=== PATIENT | female | born 1950 | race Caucasian/White ===

== ENCOUNTER → 2016-08-03 | Outpatient (CLI) | payer OTHER ==
--- NOTE | 2016-08-03 12:39 | MAMMOGRAPHY REPORT ---
BILATERAL DIGITAL SCREENING MAMMOGRAM WITH CAD: 08/03/2016 CLINICAL HISTORY: Routine screening. Patient has no complaints. TECHNIQUE: Current study was also evaluated with a Computer Aided Detection (CAD) system. Bilatera l CC and MLO views were obtained. COMPARISON: Comparison is made to exams dated: 07/29/2015 mammogram, 07/17/2013 mammogram, 07/23/2014 mammogram, 07/11/2012 mammogram, 07/06/2011 mammogram, and 07/05/2010 mammogram - [facility]. BREAST COMPOSITION: There are scattered areas of fibroglandular density in both breasts. FINDINGS: No suspicious masses, calcifications, or areas of architectural distortion are noted in e ither breast. There has been no significant interval change compared to prior exams. IMPRESSION: ACR BI-RADS CATEGORY 1: NEGATIVE There is no mammographic evidence of malignancy. A 1 year screening mammogram is recommended. The p atient will receive written notification of the results. Approximately 10% of breast cancers are not detected with mammography. A negative mammographic repor t should not delay biopsy if a clinically suggestive mass is present. Sera Otero M.D. ah/:08/03/2016 12:03:19 Consultant Teacher: Blake BARR(R)(M), [facility] letter sent: Normal 1/2 BI-RADS Code: ACR BI-RADS Category 1: Negative
== END | disposition home or self-care (01) ==
LOC: C.MAMM 08:52
PROVIDERS: ATTEND Obstetrics & Gynecology
DX: Z12.31 Encounter for screening mammogram for malignant neoplasm of breast (principal)

== ENCOUNTER → 2017-08-09 | Outpatient (CLI) | payer OTHER ==
--- NOTE | 2017-08-09 15:20 | MAMMOGRAPHY REPORT ---
BILATERAL DIGITAL SCREENING MAMMOGRAM TOMOSYNTHESIS WITH CAD: 08/09/2017 CLINICAL HISTORY: Routine screening. TECHNIQUE: Breast tomosynthesis in addition to standard 2D mammography was performed. Current study was also evaluated with a Computer Aided Detection (CAD) system. COMPARISON: Comparison is made to exams dated: 08/03/2016 mammogram, 07/29/2015 mammogram, 07/23/2014 m ammogram, 07/11/2012 mammogram, 07/17/2013 mammogram, and 07/06/2011 mammogram - [facility]ter. BREAST COMPOSITION: There are scattered areas of fibroglandular density in both breasts. FINDINGS: There is a triangle palpable marker overlying the upper outer posterior right breast, yissel ting the area of palpable concern pointed out by the patient. In the area of concern, there is a jesús y subtle focal area of architectural distortion measuring approximately 2.9 cm, which is concerning f or an infiltrative process. There is another questionable area of distortion in the slightly lateral middle one third of the right breast on the CC view (tomosynthesis slice 36/61, for which an additio nal spot compression tomosynthesis view and possible ultrasound is recommended. Additional targeted ultrasound is recommended. No other suspicious mass, architectural distortion or cluster of microcalcifications is seen bilatera lly. IMPRESSION: ACR BI-RADS CATEGORY 0: INCOMPLETE EVALUATION: NEED ADDITIONAL IMAGING EVALUATION The palpable area of architectural distortion in the upper outer posterior right breast, and second q uestionable area of architectural distortion in the slightly lateral right breast need additional boris ging evaluation. The patient will be called to schedule an appointment. Approximately 10% of breast cancers are not detected with mammography. A negative mammographic report should not delay biopsy if a clinically suggestive mass is present. Arleth Joseph M.D. ay/:08/09/2017 09:27:51 Automatic Riveting Machine Operator: Kanwal Godinez, [facility] letter sent: Addl Imaging 0 BI-RADS Code: ACR BI-RADS Category 0: Incomplete Evaluation: Need Additional Imaging Evaluation
== END | disposition home or self-care (01) ==
LOC: C.MAMM 08:07
PROVIDERS: ATTEND Obstetrics & Gynecology
DX: Z12.31 Encounter for screening mammogram for malignant neoplasm of breast (principal); R92.8 Other abnormal and inconclusive findings on diagnostic imaging of breast

== ENCOUNTER → 2017-08-16 | Outpatient (CLI) | payer OTHER ==
--- NOTE | 2017-08-17 07:59 | MAMMOGRAPHY REPORT ---
UNILATERAL RIGHT DIGITAL DIAGNOSTIC MAMMOGRAM TOMOSYNTHESIS AND TARGETED RIGHT ULTRASOUND: 08/16/2017 CLINICAL HISTORY: Palpable lump in the right upper outer quadrant, also possible subtle corresponding architectural distortion seen on recent screening mammogram. Patient presents for further workup. Also assess another area of possible distortion more medially in the right breast. TECHNIQUE: Breast tomosynthesis in addition to standard 2D mammography was performed. COMPARISON: Comparison is made to exams dated: 08/09/2017 mammogram, 08/03/2016 mammogram, 07/29/2015 ma mmogram, 07/23/2014 mammogram, 07/17/2013 mammogram, and 07/11/2012 mammogram - [facility]. BREAST COMPOSITION: There are scattered areas of fibroglandular density in the right breast. FINDINGS: The supplemental spot compression tomosynthesis views of the right breast demonstrate a ve ry subtle focal area of architectural distortion in the upper outer posterior right breast measuring approximately 21 x 23 x 14 mm. Further evaluation with ultrasound was performed. No other definite areas of architectural distortion are seen in the right breast, particularly more medially in the brian ast in the area of questionable distortion seen on the cc view. Targeted ultrasound was performed in the right upper outer quadrant and right axilla. In the area of palpable lump in the 11:00 right breast, 7 cm from the nipple, there is an ill-defined hypoechoic sh adowing area of architectural distortion measuring approximately 9.2 x 8.2 x 6.7 mm. The sonographic measurements likely underrepresented the size of the process, given that it feels at least 2 cm on p alpation. No other suspicious mass is seen throughout the right upper outer quadrant on targeted ult rasound. Several morphologically normal right axillary lymph nodes are seen without evidence of susp icious lymphadenopathy. IMPRESSION: ACR BI-RADS CATEGORY 4: SUSPICIOUS, TARGETED ULTRASOUND ACR BI-RADS CATEGORY 4: SUSPICIO US 1. Ultrasound-guided core biopsy is recommended for a subtle area of architectural distortion seen m ammographically, corresponding with a subtle hypoechoic shadowing mass, which is also palpable in the 11:00 right breast, 7 cm from the nipple. Given the subtle nature accurate measurements are difficu lt to obtain but it measures approximately 2 cm. 2. No suspicious right axillary lymphadenopathy identified on targeted ultrasound. These results and recommendations were discussed with the patient at the time of the exam. She tenta tively schedule the biopsy prior to leaving our department. Approximately 10% of breast cancers are not detected with mammography. A negative mammographic report should not delay biopsy if a clinically suggestive mass is present. Arleth Joseph M.D. ay/:08/16/2017 14:39:12 Roll Tension Tester: Blake BARR(Janie)(Contreras), [facility] letter sent: Abnormal 4/5 BI-RADS Code: ACR BI-RADS Category 4: Suspicious Ultrasound BI-RADS: ACR BI-RADS Category 4: Suspici ous
== END | disposition home or self-care (01) ==
LOC: C.MAMM 13:42
PROVIDERS: ATTEND Obstetrics & Gynecology
DX: N63.12 Unspecified lump in the right breast, upper inner quadrant (principal)

== ENCOUNTER → 2017-08-30 | Outpatient (CLI) | payer OTHER ==
[2017-08-30 18:08] LABS: BASO % 0.4 %; BASO ABS # 0.03 K/uL (0-0.2); EOS % 0.8 %; EOS ABS # 0.06 K/uL (0-0.5); HEMATOCRIT 41.3 % (37-47); HEMOGLOBIN 13.4 g/dL (12.0-16.0); IG# 0.01 K/uL (0.00-0.02); LYMPH % 24.7 %; LYMPH ABS # 1.82 K/uL (1.2-3.4); MEAN CELL VOLUME 92.2 fL (80-100); MEAN CORPUSCULAR HEMOGLOBIN 29.9 pg (25-34); MEAN CORPUSCULAR HGB CONC 32.4 g/dl (32-36); MEAN PLATELET VOLUME 10.5 fL (7.4-10.4); MONO % 10.7 %; MONO ABS # 0.79 K/uL (0.11-0.59); NEUT % 63.3 %; NEUT ABS # 4.66 K/uL (1.4-6.5); PLATELET COUNT 233 K/uL (130-400); RED CELL DISTRIBUTION WIDTH CV 13.2 % (11.5-14.5); RED CELL DISTRIBUTION WIDTH SD 44.4 fL (36.4-46.3); WHITE BLOOD COUNT 7.37 K/uL (4.8-10.8)
[2017-08-30 20:08] LABS: BLOOD UREA NITROGEN 30 mg/dl (7-18); CALCIUM 9.1 mg/dl (8.5-10.1); CARBON DIOXIDE 28 mmol/L (21-32); CREATININE 0.99 mg/dl (0.60-1.20); GLUCOSE 103 mg/dl (70-99); SODIUM 137 mmol/L (136-145)
== END | disposition home or self-care (01) ==
LOC: C.LABPVFM 12:59
PROVIDERS: ATTEND Family Medicine
DX: R92.8 Other abnormal and inconclusive findings on diagnostic imaging of breast (principal); C50.919 Malignant neoplasm of unspecified site of unspecified female breast

== ENCOUNTER → 2017-09-06 | Outpatient (CLI) | payer OTHER ==
[~2017-09-06] MED LIST: GADAVIST IV PRN
--- NOTE | 2017-09-07 12:40 | MAMMOGRAPHY REPORT ---
BREAST MRI OF BOTH BREASTS : 09/06/2017 CLINICAL HISTORY: 67-year-old woman with recent biopsy-proven infiltrating ductal carcinoma in the 11 :00 posterior right breast. She presents for preoperative MRI assessment of the breasts to assess fo r extent of disease. COMPARISON: Comparison is made to exams dated: 08/23/2017 ultrasound biopsy, 08/23/2017 mammogram, 08/06 mammogram, 08/09/2017 mammogram, 08/03/2016 mammogram, and 07/29/2015 mammogram - [facility]. TECHNIQUE: Using a 1.5 Rand magnet and dedicated breast coil, multisequence axial images were obtain ed through the breasts. After uneventful IV administration of 8.5 mL of Gadavist, dynamic multiphase contrast-enhanced axial images, and sagittal postcontrast were obtained. Temporal subtraction axial images and 3-D MIP images are provided. Everything was then reviewed on a 3-D workstation, [employer]. FINDINGS: Right breast: There is no significant background parenchymal enhancement. There is a small focus of susceptibility artifact in the 11:00 posterior right breast, denoting the biopsy marker clip from rec ent ultrasound-guided core biopsy. There is non-mass enhancement with associated persistent kinetics surrounding the biopsy marker clip in the 11:00 posterior right breast that extends approximately 2. 2 cm in craniocaudal by 3.3 cm in AP by 1.6 cm in largest transverse dimension, which represents the biopsy proven carcinoma. (These MRI measurements may slightly underestimate the lesion given positio tomas and the mammographic measurements may be more accurate, in which the subtle area of distortion m easures 4.0 cm in AP by 2.2 cm in transverse by 2.8 cm in craniocaudal dimension.) There is addition al non-mass enhancement more medially within the right breast to correspond with a questionable secon d area of distortion that effaced with supplemental spot compression tomosynthesis views. Overall, n o other suspicious mass or non-mass enhancement is seen within the right breast. No suspicious kinet ics or unexpected architectural distortion. No suspicious right axillary lymphadenopathy. The retro mammary fat is intact and there is no evidence of pectoralis muscle enhancement. Left breast: There is no significant background parenchymal enhancement. No suspicious enhancing mas s, non-mass enhancement, architectural distortion or suspicious kinetics identified in the left breas t. Incidental note is made of a 4 mm enhancing dermal lesion along the lower outer middle one third of the left breast. No suspicious left axillary lymphadenopathy. IMPRESSION: ACR BI-RADS CATEGORY 6: KNOWN BIOPSY PROVEN MALIGNANCY 1. There is non-mass enhancement with associated biopsy marker clip in the 11:00 posterior right brian ast, which represents the recent biopsy-proven carcinoma. Mammographic measurements are felt to be m ost accurate than those currently obtained on MRI, in which the subtle area of distortion measures 4. 0 x 2.2 x 2.8 cm. No multifocal or multicentric disease identified. 2. No skin or pectoralis muscle invasion identified. No suspicious right or left axillary lymphaden opathy. No contralateral left breast malignancy identified on MRI. The patient will receive written notification of the results. Arleth Joseph M.D. ay/:09/06/2017 16:29:35 Medical Care Manager: weld technician, [facility] letter sent: Birad 6 BI-RADS Code: ACR BI-RADS Category 6: Known Biopsy Proven Malignancy
== END | disposition home or self-care (01) ==
LOC: C.MRI 12:00
PROVIDERS: ATTEND Surgery
DX: R92.8 Other abnormal and inconclusive findings on diagnostic imaging of breast (principal)

== ENCOUNTER → 2017-09-08 | Outpatient (CLI) | payer OTHER | END | disposition home or self-care (01) | LOC: C.CPL 12:14 | PROVIDERS: ATTEND Surgery | DX: Z01.810 Encounter for preprocedural cardiovascular examination (principal); C50.919 Malignant neoplasm of unspecified site of unspecified female breast ==

== ENCOUNTER → 2017-12-04 | Outpatient (CLI) | payer OTHER ==
[~2017-12-04] MED LIST changes: +BIOT1CAP8 PO; +CHOL2000 PO; +COEN1CAP7 PO; +FLAX1CAP11 PO; -GADAVIST IV PRN; +GARLTAB3 PO; +GING1CAP PO; +GLUCTAB7 PO; +GREE315C PO; +MISCCAP52 PO; +MULT-506 PO; +OMEG1CAP71 PO; +SELE200T PO; +VITACAP37 PO; +VITAMIN C PO; +[UNRECOGNIZED DRUG - OTHER] PO
[2017-12-04 12:55] LABS: BASO % 0.4 %; BASO ABS # 0.02 K/uL (0-0.2); EOS % 1.1 %; EOS ABS # 0.05 K/uL (0-0.5); HEMATOCRIT 42.1 % (37-47); HEMOGLOBIN 13.6 g/dL (12.0-16.0); LYMPH ABS # 0.88 K/uL (1.2-3.4); MEAN CELL VOLUME 92.1 fL (80-100); MEAN CORPUSCULAR HEMOGLOBIN 29.8 pg (25-34); MEAN CORPUSCULAR HGB CONC 32.3 g/dl (32-36); MEAN PLATELET VOLUME 10.9 fL (7.4-10.4); NEUT % 66.5 %; NEUT ABS # 3.08 K/uL (1.4-6.5); PLATELET COUNT 170 K/uL (130-400); RED CELL DISTRIBUTION WIDTH SD 43.7 fL (36.4-46.3); WHITE BLOOD COUNT 4.63 K/uL (4.8-10.8)
[2017-12-04 13:41] LABS: ALBUMIN 3.8 gm/dl (3.4-5.0); ALKALINE PHOSPHATASE 79 U/L (45-117); ALT/SGPT 31 U/L (12-78); AST/SGOT 16 U/L (15-37); BLOOD UREA NITROGEN 25 mg/dl (7-18); CALCIUM 8.3 mg/dl (8.5-10.1); CARBON DIOXIDE 27 mmol/L (21-32); CREATININE 0.81 mg/dl (0.60-1.20); GLUCOSE 102 mg/dl (70-99); POTASSIUM 3.9 mmol/L (3.5-5.1); SODIUM 139 mmol/L (136-145); TOTAL PROTEIN 7.3 gm/dl (6.4-8.2)
== END | disposition home or self-care (01) ==
LOC: C.LABPVFM 10:38
PROVIDERS: ATTEND Internal Medicine Hematology & Oncology
DX: C50.919 Malignant neoplasm of unspecified site of unspecified female breast (principal)

== ENCOUNTER → 2017-12-05 | Outpatient (CLI) | payer OTHER | END | disposition home or self-care (01) | LOC: C.MAMM 07:47 | PROVIDERS: ATTEND Obstetrics & Gynecology | DX: Z78.0 Asymptomatic menopausal state (principal) ==